=== PATIENT | female | born 1935 | race Caucasian/White ===

== ENCOUNTER 2017-04-23 14:39 | Outpatient (CLI) | payer MEDICARE, OTHER ==
--- NOTE | 2017-04-24 17:34 | Ultrasound Report ---
EXAM: Bilateral Lower Extremity Arterial Doppler Ultrasound EXAM DATE: 04/23/2017 03:02 PM. CLINICAL HISTORY: Leg heaviness and CAD. COMPARISON: None. TECHNIQUE: Real-time sonographic vascular imaging was performed by the inside sales manager, utilizing color-f low, Doppler flow, and spectral analysis. Multiple sales representative cash registers static images were saved for review . FINDINGS: No focal hemodynamically significant stenoses are identified. Monophasic waveforms are pres ent in the left anterior tibial artery. The remaining vessels demonstrate biphasic or triphasic wavef orms. Spectral waveform analysis is as follows: Right Leg: WASH DRILLER: PSV 126 cm/sec. triphasic waveform. PSFA: PSV 90 cm/sec. biphasic waveform. MSFA: PSV 96 cm/sec. triphasic Waveform. DSFA: PSV 77 cm/sec. biphasic Waveform. PFA: PSV 71 cm/sec. biphasic waveform. POP: PSV 44 cm/sec. biphasic waveform. MILKA: PSV 58 cm/sec. biphasic waveform. QUALITY COMPLIANCE CONSULTANT: PSV 79 cm/sec. biphasic waveform. PER: PSV 32 cm/sec. biphasic waveform. DPA: PSV 86 cm/sec. biphasic waveform. Left Leg: WASH DRILLER: PSV 100 cm/sec. triphasic waveform. PSFA: PSV 120 cm/sec. triphasic waveform. MSFA: PSV 108 cm/sec. triphasic waveform. DSFA: PSV 89 cm/sec. triphasic Waveform. PFA: PSV 58 cm/sec. biphasic waveform. POP: PSV 40 cm/sec. biphasic waveform. MILKA: PSV 41 cm/sec. monophasic waveform. QUALITY COMPLIANCE CONSULTANT: PSV 64 cm/sec. triphasic waveform. PER: PSV 34 cm/sec. biphasic waveform. DPA: PSV 52 cm/sec. biphasic waveform. IMPRESSION: 1. No hemodynamically significant stenoses. [facility] Referring Provider Line: [phone] SITE ID: [id number]
== END 2017-04-23 14:40 | disposition home or self-care (01) ==
LOC: DI 14:39
PROVIDERS: ATTEND Physician Assistant
DX: I25.10 Atherosclerotic heart disease of native coronary artery without angina pectoris (principal); R29.898 Other symptoms and signs involving the musculoskeletal system
CPT/HCPCS: 93925

== ENCOUNTER 2019-05-11 11:25 | Outpatient (CLI) | payer MEDICARE, OTHER ==
--- NOTE | 2019-05-12 11:31 | XRAY Report ---
Reason: PAIN IN LEFT SHOULDER, M25.512 Procedure Date: 05/11/2019 Accession Number: [id number] / [id number] Procedure: XRS - Shoulder 3 View LT CPT Code: FULL RESULT: EXAM: LEFT SHOULDER RADIOGRAPHY EXAM DATE: 05/11/2019 11:40 AM. CLINICAL HISTORY: PAIN IN LEFT SHOULDER, M25. 512. Unable to lift arm. COMPARISON: None. TECHNIQUE: 3 views. FINDINGS: Bones: Normal. No fracture or bone lesion. Joints: The glenohumeral and acromioclavicular joints are normally aligned. 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 Soft tissues: Small nodular calcification along the proximal humeral diaphysis likely represented into the dental soft tissue calcification. Aortic calcification. Otherwise, the visualized hemithorax is unremarkable. No soft tissue swelling. IMPRESSION: 1. No acute abnormality. 2. 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 [facility]
== END 2019-05-11 11:26 | disposition home or self-care (01) ==
LOC: DI.S 11:25
PROVIDERS: ATTEND Physician Assistant
DX: M19.012 Primary osteoarthritis, left shoulder (principal)

== ENCOUNTER 2023-06-05 13:48 | Outpatient (CLI) | payer MEDICARE, OTHER | END 2023-06-05 13:49 | disposition short-term general hospital (02) | LOC: EMS 13:48 | DX: S79.912A Unspecified injury of left hip, initial encounter (principal); M25.552 Pain in left hip; R53.1 Weakness; W01.0XXA Fall on same level from slipping, tripping and stumbling without subsequent striking against object, initial encounter; Y93.E3 Activity, vacuuming; Y92.008 Other place in unspecified non-institutional (private) residence as the place of occurrence of the external cause | CPT/HCPCS: A0425; A0427 ==

== ENCOUNTER 2023-06-16 08:28 | Outpatient (CLI) | payer MEDICARE, OTHER ==
[2023-06-16 08:38] LABS: BASOPHILS # (AUTO) 0.1 10^3/uL (0.0-0.1); BASOPHILS % (AUTO) 0.5 %; EOSINOPHILS # (AUTO) 0.4 10^3/uL (0.0-0.7); EOSINOPHILS % (AUTO) 3.2 %; HCT - HEMATOCRIT 24.1 % (37.0-47.0); HGB - HEMOGLOBIN 7.8 g/dL (12.0-16.0); LYMPHOCYTES % (AUTO) 8.4 %; MEAN CORPUSCULAR HEMOGLOBIN 30.1 pg (27.0-31.0); MEAN CORPUSCULAR HGB CONC 32.4 g/dL (32.0-36.0); MEAN CORPUSCULAR VOLUME 93.1 fL (81.0-99.0); MEAN PLATELET VOLUME 8.4 fL (7.9-10.8); MONOCYTES # (AUTO) 1.1 10^3/uL (0.0-1.0); MONOCYTES % (AUTO) 8.5 %; NEUTROPHILS # (AUTO) 9.5 10^3/uL (1.5-6.6); NEUTROPHILS % (AUTO) 77.3 %; PLT - PLATELET COUNT 327 10^3/uL (130-450); RED BLOOD COUNT 2.59 10^6/uL (4.20-5.40); RED CELL DISTRIBUTION WIDTH 15.3 % (12.0-15.0); WHITE BLOOD COUNT 12.3 x10^3/uL (4.8-10.8)
[2023-06-16 08:54] LABS: ALBUMIN 3.1 g/dL (3.2-5.5); ALBUMIN/GLOBULIN RATIO 1.7 (1.0-2.2); BILIRUBIN,TOTAL 0.8 mg/dL (0.2-1.0); CREATININE 0.5 mg/dL (0.6-1.3); POTASSIUM 4.7 mmol/L (3.5-4.5); TOTAL PROTEIN 4.9 g/dL (6.4-8.9)
== END 2023-06-16 08:29 | disposition home or self-care (01) ==
LOC: LAB.R 08:28
PROVIDERS: ATTEND Registered Nurse
DX: I25.10 Atherosclerotic heart disease of native coronary artery without angina pectoris (principal); D62 Acute posthemorrhagic anemia
CPT/HCPCS: 80053; 85025